=== PATIENT | female | born 1970 | race Caucasian/White ===

== ENCOUNTER 2017-07-10 18:02 | Emergency (ER) | payer OTHER ==
[~2017-07-10] VITALS: Ht 154.9 cm; Wt 81.6 kg
[~2017-07-10 18:02] MED LIST: AMLODIPINE BESYL5 M1 PO; FIORICET1 TAB PO; IMITREX25 MG PO; SERTRALINE HYDR50 M1 PO; ZES20 PO
[2017-07-10 18:10] VITALS: BP 157/80; Ht 154.9 cm; Wt 81.6 kg
== END 2017-07-10 20:44 | disposition home or self-care (01) ==
LOC: ED 18:02
DX: S82.892A Other fracture of left lower leg, initial encounter for closed fracture (principal); I10 Essential (primary) hypertension; W01.0XXA Fall on same level from slipping, tripping and stumbling without subsequent striking against object, initial encounter; Y93.89 Activity, other specified; Y92.89 Other specified places as the place of occurrence of the external cause; Y99.8 Other external cause status

== ENCOUNTER 2017-08-03 17:32 | Emergency (ER) | payer OTHER ==
[~2017-08-03] VITALS: Ht 160 cm; Wt 81.6 kg
[2017-08-03 19:46] VITALS: BP 140/88
== END 2017-08-03 19:46 | disposition home or self-care (01) ==
LOC: ED 17:32
DX: S82.65XA Nondisplaced fracture of lateral malleolus of left fibula, initial encounter for closed fracture (principal); I10 Essential (primary) hypertension; E78.00 Pure hypercholesterolemia, unspecified; X58.XXXA Exposure to other specified factors, initial encounter; Y93.89 Activity, other specified; Y92.89 Other specified places as the place of occurrence of the external cause; Y99.8 Other external cause status

== ENCOUNTER 2017-12-09 13:58 | Inpatient (IN) | payer OTHER ==
[~2017-12-09] VITALS: Ht 160 cm; Wt 82.1 kg
[2017-12-09 14:08] VITALS: Ht 160 cm; Wt 82.1 kg
[2017-12-09 14:51] LABS: CALCIUM 8.9 mg/dL (8.5-10.1); CHLORIDE SERUM 103 mmol/L (98-107); CREATININE SERUM 0.8 mg/dL (0.6-1.0); GFR1 > 60 mL/min; GLUCOSE SERUM 143 mg/dL (74-106); POTASSIUM SERUM 3.4 mmol/L (3.5-5.1); SODIUM SERUM 136 mmol/L (136-145)
[2017-12-09 14:52] LABS: BASOPHIL % 0.3 % (0-2); PLATELET COUNT 264 x10^3mcL (130-400); RED CELL DISTRIBUTION WIDTH 13.6 % (11.5-14.5)
[2017-12-09 14:57] LABS: ALBUMIN 3.7 g/dL (3.4-5.0); ALKALINE PHOSPHATASE 61 U/L (46-116); ALT/SGPT 30 U/L (14-59); AST/SGOT 23 U/L (15-37); BILIRUBIN TOTAL 0.5 mg/dL (0.20-1.00); TOTAL PROTEIN, SERUM 7.2 g/dL (6.4-8.2)
[2017-12-09 15:57] LABS: LIPASE 6396 IU/L (73-393)
[2017-12-09] MEDS ORDERED: ZESTRIL20 MG PO (17:09)
[2017-12-09] MEDS ORDERED: SIMVASTATIN20 M1 PO (17:09)
[2017-12-09] MEDS ORDERED: HYDROCHLOROTHIA25 MG PO (17:10)
[2017-12-09 18:26] VITALS: BP 144/97
[2017-12-09 21:07] VITALS: BP 120/76
[2017-12-10 05:32] VITALS: BP 116/62
[2017-12-10 06:45] LABS: BASOPHIL % 0.4 % (0-2); PLATELET COUNT 224 x10^3mcL (130-400); RED CELL DISTRIBUTION WIDTH 13.6 % (11.5-14.5)
[2017-12-10 07:12] LABS: ALKALINE PHOSPHATASE 58 U/L (46-116); ALT/SGPT 25 U/L (14-59); AST/SGOT 19 U/L (15-37); CARBON DIOXIDE 24.7 mmol/L (21-32); CHLORIDE SERUM 108 mmol/L (98-107); CREATININE SERUM 0.9 mg/dL (0.6-1.0); GFR1 > 60 mL/min; GLUCOSE SERUM 134 mg/dL (74-106); POTASSIUM SERUM 3.7 mmol/L (3.5-5.1); SODIUM SERUM 142 mmol/L (136-145); TOTAL PROTEIN, SERUM 6.3 g/dL (6.4-8.2)
[2017-12-10 07:25] LABS: ALBUMIN 3.1 g/dL (3.4-5.0)
[2017-12-10 08:41] LABS: LIPASE 2608 IU/L (73-393)
[2017-12-10 08:59] VITALS: BP 134/84
[2017-12-10 17:23] VITALS: BP 120/78
[2017-12-10 20:23] VITALS: BP 135/78
[2017-12-11 05:14] VITALS: BP 122/73
[2017-12-11 07:15] LABS: CHOLESTEROL/HDL RATIO 4.6
[2017-12-11 09:03] VITALS: BP 136/77
[2017-12-11 11:18] VITALS: BP 136/77
== END 2017-12-11 14:05 | disposition home or self-care (01) | DRG 282 ==
LOC: ED 13:58 → MU 16:36
PROVIDERS: Emergency Medicine; Internal Medicine Pulmonary Disease
PROC: BF42ZZZ Ultrasonography of Gallbladder (ICD-10-PCS; principal; 2017-12-10)
DX: K85.90 Acute pancreatitis without necrosis or infection, unspecified (principal); K76.0 Fatty (change of) liver, not elsewhere classified; E66.01 Morbid (severe) obesity due to excess calories; E78.00 Pure hypercholesterolemia, unspecified; I10 Essential (primary) hypertension; G43.909 Migraine, unspecified, not intractable, without status migrainosus; G44.89 Other headache syndrome
CPT/HCPCS: J1885; J2543; J7030; J7042; Q0092; Q0162